=== PATIENT | female | born 1995 | race Caucasian/White ===

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

== ENCOUNTER 2018-11-10 08:27 | Inpatient (IN) | payer BC ==
[2018-11-10] MEDS ORDERED: Lactated Ringers 1000 ML Bag* 1,000 ML IV ONE (09:28)
[2018-11-10] MEDS ORDERED: Buffered Lidocaine 1% SYRIN* 1 ML/SYRINGE INTRADERM ONE (09:28)
--- NOTE | 2018-11-10 09:36 | HP ---
General Information - Reason for Visit Here for induction of labor for postdates - General Information Maternal Age: 23 Grav: 2 Para: 1 SAB: 0 IEA: 0 Estimated Due Date: 10/30/18 Determined By: LMP Maternal Blood Type and Rh: O Negative - Results this Serology/RPR Result: Non-Reactive Rubella Result: Immune HBsAg Result: Negative HIV Result: Negative GBS Culture Result: Negative Past Medical History Delivery History: Hx Complicated Vaginal Delivery - VAVD 08/30 Pertinent Past Medical History: Non-Contributory Past Medical History Comment: Depression/anxiety, well managed this Pertinent Past Surgical History: None Pertinent Family History: Non-Contributory Family History Comment: paternal grandmother: unknown cancer - Antepartal Records Antepartal Records: Reviewed, Complicated by: - Rh negative, varicella non-immune Review of Systems Constitutional: Uncomfortable CV Complaint: No Respiratory: Shortness of Breath: No Gastrointestinal: No Nausea/Vomiting, Normal Bowel Movement Genitourinary: No Dysuria, No Leaking Fluid, Spotting - with mucus discharge Musculoskeletal: Contractions Neurological: No Headache, No Visual Changes Movement: Normal Exam Allergies/Adverse Reactions: Allergies amoxicillin Allergy (Verified 11/10/18 09:31) Hives Penicillins Allergy (Verified 11/10/18 09:30) Hives shellfish derived Allergy (Verified 11/10/18 09:31) Anaphylatic Shock BP 140/81 T 97.5 HR 94 RR 16 O2 100 - Measurements Height: 5 ft 6.93 in Weight: 240 lb Weight in lbs: [id number] Body Mass Index (BMI): 37.6 Pre- Weight: 220 lb Weight Gained This : 20 lbs and 0 ozs - Exam Breast: Breast Exam Deferred CVA: No CVA Tenderness Extremities: Edema - 1+ Heart: Normal Rhythm/Heart Sounds HEENT: No Significant Findings Lungs: Clear Bilaterally Rectal: Rectal Exam Deferred Reflexes: - - Not elicited, no clonus Thyroid: - - WNL @ entry to care - Abdominal Exam Abdomen Exam: Non-Tender, Fundal Height Consistent with Dates - Ultrasound/Biophysical Profile Ultrasound Status: Not Done Targeted Exam Findings Estimated Weight: 8-8.5lb Cervical Exam: 4cm Effacement: 80% Station: 0 Presenting Part: Vertex Membrane Status: Intact Bleeding/Discharge: None EFM Findings - External Monitor Findings Baseline Heart Rate: 145 External Monitor Findings: Accelerations Present, No Pattern of Variable or Late Decelerations, Variability Moderate Contractions: Irregular, Moderate, < 45 Seconds Contraction Frequency: Q 3-6 min Assessment/Plan - Assessment IUP @ 41+4 weeks gestation for induction of labor. IBOW. No evidence metabolic acidemia - Obstetrical Risk Factors Obstetrical Risk Factors: Obesity - Plan Plan: Induction, Admit - Anticipate Vaginal Delivery Plan Comment: PARQ discussion of amniotomy vs pitocin for induction. Questions answered and patient prefers AROM at this time. Done with light meconium in fluid. Monitor, encourage movement and position changes. Anticipate SVB. - Date/Time of Admission Date of Admission: 11/10/18 Time of Admission: 09:15
[2018-11-10] MEDS ORDERED: Lactated Ringers 1000 ML Bag* 1,000 ML IV SCH ×2 (10:00→19:00)
[2018-11-10 11:21] LABS: Urine Benzodiazepine Screen None Detected (None Detect); Urine Opiates Screen None Detected (None Detect)
[2018-11-10] MEDS ORDERED: Ibuprofen TAB* 600 MG ONE (18:33)
[2018-11-10] MEDS ORDERED: Misoprostol TAB* 200 MCG PR ONE (18:42)
[2018-11-10] MEDS ORDERED: Dibucaine 1% 28.35 GM TUBE PR PRN (18:42)
[2018-11-10] MEDS ORDERED: Glycerin ADULT SUPP PR PRN (18:42)
[2018-11-10] MEDS ORDERED: OXYTOCIN* 10 UNITS/ML 1 ML VIAL IM ONE (18:42)
[2018-11-10] MEDS ORDERED: Witch Hazel PAD* JAR TOPICAL PRN (18:42)
[2018-11-10] MEDS: Acetaminophen TAB* 325 MG PO PRN (19:35)
--- NOTE | 2018-11-10 20:13 | PROCNOTE ---
[facility] OB: Delivery Note - Delivery A Date of : 11/10/18 Time of : 18:07 [place] Sex: Female - name tbd [place] Weight at : 8 lb 15 oz Score 1 Minute: 8 Score 5 Minutes: 8 Gestational Age in Weeks and Days at Delivery: 41 Weeks and 4 Days Delivery Method: Spontaneous Vaginal Labor: Induced Did Patient attempt ?: N/A, No Previous Amniotic Fluid: Meconium Estimated Blood Loss: 450 Anesthesia/Analgesia: None Delivered By: Libby Vogt - Nursery Level of Nursery: Regular/Bedside - Perineum Perineal Injury: None/Intact Perineal Repair: None - Events Delivery Events of Note: Pitocin Only After Delivery, Post- Bleeding - Meds Given - Additional Delivery Notes Additional Delivery Notes: Patient admitted for induction for postdates. Amniotomy lead to active labor with steady progression to complete. Length of active labor 5'44". Baby born @ 1730 OA to ROHITH on hands and knees, passed through to mom who turned to her side in bed. Baby with spontaneous breathing after stimulation, bulb suction. Placenta delivered with gentle cord traction @ 1814 after several gushes of blood. Pitocin 10U IM and Cytotec 800mcg NC given with good effect. EBL 450ml. Perineum intact. Mother and baby stable. Planning to breastfeed.
[2018-11-10] MEDS: Docusate CAP* 100 MG PO SCH (21:28)
[2018-11-11] MEDS: Ibuprofen TAB* 600 MG PO PRN ×3 (00:42→13:11)
[2018-11-11] MEDS: Acetaminophen TAB* 325 MG PO PRN ×2 (05:06→12:14)
[2018-11-11] MEDS ORDERED: RHO D Immune Globulin (HUMAN)* 300 MCG = 1,500 I.U. INJ IM ONE (06:00)
[2018-11-11 06:40] LABS: ABS Lymphocytes 2.2 10^3/ul (1.0-4.8); ABS Monocytes 0.7 10^3/ul (0-0.8); ABS Neutrophils 8.7 10^3/ul (1.5-7.7); Eosinophil % 0.3 %; Hematocrit 29 % (35-47); Hemoglobin 10.6 g/dL (12.0-16.0); Lymphocyte % 18.5 %; Mean Corpuscular HGB Conc 36 g/dL (31-36); Mean Corpuscular Hemoglobin 31 pg (27-31); Mean Corpuscular Volume 86 fL (80-97); Mean Platelet Volume 9.3 fL (7.4-10.4); Platelet Count 181 10^3/uL (150-450); Red Cell Distribution Width 14 % (10-15); White Blood Count 11.6 10^3/uL (3.5-10.8)
[2018-11-11] MEDS ORDERED: Ferrous Gluconate TAB* 324 MG TAB PO SCH (09:00)
[2018-11-11] MEDS: Docusate CAP* 100 MG PO SCH ×2 (09:05→13:11)
[2018-11-11 16:13] VITALS: BP 121/66
== END 2018-11-11 20:18 | disposition home or self-care (01) | DRG 560 ==
LOC: MCHOBOUT 08:27 → MCHOB 09:15
PROVIDERS: ADMIT Midwife; ATTEND Midwife
PROC: 10E0XZZ Delivery of Products of Conception, External Approach (ICD-10-PCS; principal; 2018-11-10)
PROC: 4A1HXCZ Monitoring of Products of Conception, Cardiac Rate, External Approach (ICD-10-PCS; 2018-11-10)
PROC: 3E033VJ Introduction of Other Hormone into Peripheral Vein, Percutaneous Approach (ICD-10-PCS; 2018-11-10)
PROC: 10907ZC Drainage of Amniotic Fluid, Therapeutic from Products of Conception, Via Natural or Artificial Opening (ICD-10-PCS; 2018-11-10)
DX: O48.0 Post-term pregnancy (principal); O72.1 Other immediate postpartum hemorrhage; Z37.0 Single live birth; O99.214 Obesity complicating childbirth; O77.0 Labor and delivery complicated by meconium in amniotic fluid; Z3A.41 41 weeks gestation of pregnancy; Z88.0 Allergy status to penicillin; Z91.013 Allergy to seafood; Z67.41 Type O blood, Rh negative
CPT/HCPCS: 36415; 80307; 85025; 85461; 86900; 86901; A9270-GY; J2590; J2790